=== PATIENT | male | born 1975 | race Caucasian/White ===

== ENCOUNTER 2016-09-03 08:27 | Emergency (ER) | payer MEDICAID ==
[~2016-09-03] VITALS: Ht 170.2 cm; Wt 102.1 kg
[2016-09-03 08:39] VITALS: BP_SYST 135
[2016-09-03 09:30] LABS: HEMOGLOBIN 13.3 g/dL (14.0-18.0); MEAN CORPUSCULAR HEMOGLOBIN 29 pg (27-31); MEAN CORPUSCULAR HGB CONC 33 % (32-36); MEAN CORPUSCULAR VOLUME 88 fL (79.0-98.0); RED BLOOD CELL COUNT(AUTO) 4.57 MIL/uL (4.2-6.2); RED CELL DISTRIBUTION WIDTH 11.7 % (9.0-15.0); WHITE BLOOD COUNT (AUTO) 7.3 K/uL (4.8-10.8)
[2016-09-03 09:32] LABS: CALCIUM 8.1 mg/dL (8.4-11.0); CREATININE 1.08 mg/dL (0.55-1.30); POTASSIUM 3.9 mmol/L (3.5-5.1)
[2016-09-03 09:35] LABS: PROTHROMBIN TIME 10.9 SECS (9.5-12.5)
[2016-09-03 09:37] LABS: ALBUMIN 3.7 g/dL (3.4-4.8); TOTAL BILIRUBIN 0.7 mg/dL (0.0-1.0); TOTAL PROTEIN, SERUM 7.6 g/dL (6.4-8.3)
[2016-09-03 09:53] LABS: PLATELET COUNT (AUTO) 94 K/uL (130-430)
[2016-09-03 09:55] LABS: BAND % (MANUAL) 23 % (0-6); BASOPHILS % (MANUAL) 0 % (0-2); EOSINOPHILS % (MANUAL) 0 % (0-7); LYMPHOCYTES % (MANUAL) 3 % (20-46); MONOCYTES % (MANUAL) 8 % (0-11)
[2016-09-03] MEDS ORDERED: cefTRIAXone 1 GM VIAL IM ONE (10:30)
[2016-09-03] MEDS ORDERED: LIDOCAINE 1%, 20 ML MDV 20 ML ONE (10:32)
[2016-09-03 11:00] VITALS: BP_SYST 128
[2016-09-03] MEDS ORDERED: NACL 0.9% 1,000 ML IV ONE (11:00)
== END 2016-09-03 11:00 | disposition home or self-care (01) ==
LOC: SED 08:27
DX: R55 Syncope and collapse (principal); R50.9 Fever, unspecified
CPT/HCPCS: 36415; 70450; 71010; 80053; 82550; 84484; 85007; 85027; 85610; 85730; 93005; 96360; 96372; 99285; J0696; J2001; J7030